=== PATIENT | female | born 1950 | race Caucasian/White ===

== ENCOUNTER 2017-04-13 01:58 | Observation (INO) | payer OTHER ==
[2017-04-13] MEDS ORDERED: NS 1,000 ML IV ONE (02:09)
--- NOTE | 2017-04-13 02:09 | EDPHY ---
H & P HPI/ROS: HPI CHIEF COMPLAINT: Face tingling, left arm tingling, left foot tingling HISTORY OF PRESENT ILLNESS: This patient is 66-year-old female, history of atrial fibrillation, obstructive sleep apnea, C diff, and only takes baby aspirin, she presents to the emergency room with what she noted initially was left formal left hand tingling noticed that her face was tingling both sides not 1 side, and noticed her left foot was tingling. She became concerned as it persisted started 11:00 p.m. so it has been present for 4+ hours. She denies any chest pain or shortness of breath or focal weakness. She decided come the emergency room to be evaluated for this tingling. Past Medical History: Atrial fibrillation, obstructive sleep apnea, C diff, oxygen at night Past Surgical History: No recent surgery Social History: Denies daily use drugs alcohol tobacco products Family History: Noncontributory ROS REVIEW OF SYSTEMS: A comprehensive 10 point review of systems is otherwise negative aside from elements mentioned in the history of present illness. Exam Constitutional appears well nontoxic, triage nursing summary reviewed, vital signs reviewed, awake/alert. Eyes normal conjunctivae and sclera, EOMI, PERRLA. HENT normal inspection, atraumatic, moist mucus membranes, no epistaxis, neck supple/ no meningismus, no raccoon eyes. Respiratory clear to auscultation bilaterally, normal breath sounds, no respiratory distress, no wheezing. Cardiovascular rate normal, regular rhythm, no murmur, no edema, distal pulses normal. Gastrointestinal soft, non-tender, no rebound, no guarding, normal bowel sounds, no distension, no pulsatile mass. Genitourinary no CVA tenderness. Musculoskeletal no midline vertebral tenderness, full range of motion, no calf swelling, no tenderness of extremities, no meningismus, good pulses, neurovascularly intact. Skin pink, warm, & dry, no rash, skin atraumatic. Neurologic no focal neuro deficit on exam, awake, alert and oriented x 3, AAOx3 , moves all 4 extremities equally, motor intact, sensory intact, CN II-XII intact, normal cerebellar, normal vision, normal speech. Psychiatric normal mood/affect. Heme/Lymph/Immune no lymphadenopathy. Differential Diagnosis: Includes but is not limited to in a particular order, TIA, CVA, electrolyte disturbance, intracranial bleed Medical Decision Making: Plan for this patient I will touch base with [facility] and how they would like me to proceed with this neurological evaluation. She does have a underlying history of AFib and only on aspirin, she complaining of left forearm and hand tingling, full face tingling and left foot tingling. She distally tells me that she has a little bit of increased swelling to her lower extremities bilaterally. No chest pain or shortness of breath. Patient had a CT scan of her head, EKG, troponin, blood work and re- evaluation. Re-evaluation: 0223AM: Spoke with Dr. Yash Soto, [facility]. He is not feel the patient needs an emergent MRI at this time. Obviously she is not a tPA candidate. Time of onset of symptoms 11:00 p.m. her over 4+ hours. Her symptoms very mild of tingling. No weakness. Recommend CT scan blood work and touch base with Gabriel. CT scan of the head without IV contrast The results of the study are negative for bleed or infarct. The study was read by Dr. Corbin. I viewed the images myself on the PACS system. 0256AM: Spoke with [facility]. They are fine with us keeping the patient here in the hospital. 0256AM: ED x-ray chest one view negative for acute cardiopulmonary disease. Image interpreted by myself. 0304AM: Re-evaluation at this time. Patient complaining tingling left forearm left hand. No new neurological symptoms. No focal weakness. No chest pain or shortness of breath. Her blood work including troponin, EKG, CT head without contrast is unremarkable. She will be admitted to Dr. Gipson for further evaluation of this left-sided tingling and face tingling. Again she is not a tPA candidate due to outside the window as well as symptoms extremely mild. She is resting comfortably she is agreeable for admission. Source: Patient - Medical/Surgical History Hx Asthma: No Hx Chronic Respiratory Disease: No Hx Diabetes: No Hx Cardiac Disease: Yes Hx Renal Disease: No Hx Cirrhosis: No Hx Alcoholism: No Hx HIV/AIDS: No Hx Splenectomy or Spleen Trauma: No Other PMH: afib, pituitary cyst removal, HAYDEE - Social History Smoking Status: Former smoker Constitutional: Initial Vital Signs Temperature (C) 37.0 C 04/13/17 02:00 Heart Rate 60 04/13/17 02:00 Respiratory Rate 18 04/13/17 02:00 Blood Pressure 163/91 H 04/13/17 02:00 O2 Sat (%) 95 04/13/17 02:00 O2 Delivery Mode Room Air O2 (L/minute) 2 Allergies/Adverse Reactions: metoprolol Allergy (Verified 04/13/17 09:54) slows heart rate metronidazole [From Flagyl] Allergy (Verified 04/13/17 09:54) blurred vision Home Medications: Medication Instructions Recorded Aspirin [Aspirin 81mg (*)] 81 mg PO HS 05/02/15 Ascorbic Acid [Vitamin C 500 mg 500 mg PO DAILY 07/08/16 (*)] Herbals/Supplements -Info Only 1 ea PO DAILY 07/08/16 Multivitamins [Multivitamin (*)] 1 each PO DAILY 07/08/16 Sodium Chloride [Saline [place]] 1 - 2 spray EACHNARE HS PRN 07/08/16 Dugger-3 Fatty Acids [Fish Oil 1000 1,000 mg PO BID 04/13/17 mg (*)] Atorvastatin Calcium [Lipitor 10 10 mg PO DAILY #30 tab 04/14/17 mg (*)] Diltiazem [Cardizem Immediate 30 mg PO QID #60 tab 04/14/17 Release] Warfarin Sodium 5 mg PO DAILY #30 tablet 04/14/17 Medical Decision Making - Data Points Laboratory Results: Laboratory Results 04/13/17 02:10 04/13/17 02:10 Medications Given: Discontinued Medications Ascorbic Acid (Vitamin C) 500 mg PO DAILY [facility] Stop: 10/10/17 11:29 Last Admin: 04/14/17 07:57 Dose: 500 mg Aspirin (Aspirin) 81 mg PO HS [facility] Stop: 10/10/17 20:59 Last Admin: 04/13/17 20:52 Dose: 81 mg Aspirin Buffered (Aspirin Ec) 325 mg PO EDNOW ONE Stop: 04/13/17 02:56 Last Admin: 04/13/17 03:06 Dose: 325 mg Atorvastatin Calcium (Lipitor) 10 mg PO DAILY [facility] Stop: 10/10/17 12:59 Last Admin: 04/14/17 08:09 Dose: Not Given Bacitracin (Bacitracin Ointment) 1 lora TP BID [facility] Stop: 05/13/17 20:59 Last Admin: 07/25/17 07:58 Dose: 1 lora Digoxin (Lanoxin) 62.5 mcg PO HS [facility] Stop: 10/10/17 11:59 Last Admin: 04/13/17 12:00 Dose: 62.5 mcg Diltiazem HCl (Cardizem Immediate Release) 30 mg PO ONCE ONE Stop: 04/14/17 11:16 Last Admin: 04/14/17 11:35 Dose: 30 mg Enoxaparin Sodium (Lovenox) 95 mg SC ONCE ONE Stop: 04/13/17 12:57 Last Admin: 04/13/17 13:12 Dose: 95 mg Sodium Chloride (Ns) 1,000 mls @ 0 mls/hr IV ONCE ONE; Wide Open PRN Reason: Protocol Stop: 04/13/17 02:10 Last Admin: 04/13/17 02:25 Dose: 1,000 mls Diltiazem HCl 125 mg/ Dextrose 125 mls @ 0 mls/hr IV CONT ADOLFO; Per Protocol PRN Reason: Protocol Stop: 10/10/17 12:44 Last Admin: 04/13/17 17:00 Dose: 125 mls Magnesium Sulfate (Epsom Salt) 454 gm TP ONCE ONE Stop: 04/13/17 16:21 Last Admin: 04/13/17 16:30 Dose: 454 gm Multivitamins (Tab-A-Salazar) 1 each PO DAILY [facility] Stop: 10/10/17 11:29 Last Admin: 04/14/17 07:57 Dose: 1 each [id number] Ethyl Esters (Fish Oil) 1,000 mg PO BID [facility] Stop: 10/10/17 20:59 Last Admin: 04/14/17 07:58 Dose: 1,000 mg Sodium Chloride (Rosine) 1 - 2 spray EACHNARE HS PRN PRN Reason: Dry Nose Stop: 10/10/17 11:31 Last Admin: 04/13/17 17:30 Dose: 1 spr Warfarin Sodium (Coumadin) 5 mg PO ONCE@16 ONE Stop: 04/13/17 16:01 Last Admin: 04/13/17 16:30 Dose: 5 mg Departure - Departure Disposition: [facility] Acute Clinical Impression: Paresthesias Atrial fibrillation Qualifiers: Atrial fibrillation type: unspecified Qualified Code(s): I48.91 - Unspecified atrial fibrillation Condition: Fair
--- NOTE | 2017-04-13 02:10 | CPEKG ---
Heart Rate: 52 RR Interval: 1154 P-R Interval: 192 QRSD Interval: 78 QT Interval: 436 QTC Interval: 406 P Sparta: 49 QRS [place]: -1 T Wave [place]: 8 EKG Severity - BORDERLINE ECG - EKG Impression: SINUS RHYTHM EKG Impression: BORDERLINE T ABNORMALITIES, ANTERIOR LEADS Electronically Signed By: Rakan Parra 15-Apr-2017 14:28:52
[2017-04-13 02:22] LABS: % IMMATURE GRANULYOCYTES 0.4 % (0.0-1.1); ABSOLUTE IMMATURE GRANULOCYTES 0.03 10^3/uL (0.00-0.10); ADD DIFF? NO; ADD MORPH? NO; ADD SCAN? NO; ATYPICAL LYMPHOCYTE FLAG 0 (0-99); FRAGMENT RBC FLAG 0 (0-99); HEMATOCRIT 38.9 % (38.0-47.0); HEMOGLOBIN 13.4 g/dL (12.6-16.3); LEFT SHIFT FLG 0 (0-99); LIPEMIA HEMOLYSIS FLAG 90 (0-99); MEAN CELL HEMOGLOBIN 30.5 pg (27.9-34.1); MEAN CELL HEMOGLOBIN CONCENTR. 34.4 g/dL (32.4-36.7); MEAN CELL VOLUME 88.4 fL (81.5-99.8); PLATELET CLUMPS FLAG 0 (0-99); PLATELET COUNT 241 10^3/uL (150-400); RED CELL DISTRIBUTION WIDTH 12.3 % (11.5-15.2)
[2017-04-13 02:32] LABS: ALANINE AMINOTRANSFERASE 36 IU/L (9-52); ALBUMIN 4.3 g/dL (3.5-5.0); ALKALINE PHOSPHATASE 64 IU/L (38-126); ANION GAP 12 mEq/L (8-16); ASPARTATE AMINOTRANSFERASE 26 IU/L (14-46); BILIRUBIN,TOTAL 0.5 mg/dL (0.1-1.4); BILIRUBIN-CONJUGATED 0.2 mg/dL (0.0-0.5); BILIRUBIN-UNCONJUGATED 0.3 mg/dL (0.0-1.1); CALCIUM 9.4 mg/dL (8.5-10.4); CARBON DIOXIDE 22 mEq/l (22-31); CHLORIDE 103 mEq/L (97-110); CREATININE 0.7 mg/dL (0.6-1.0); GLOMERULAR FILTRATION RATE > 60; GLUCOSE 96 mg/dL (70-100); INR 1.01 (0.83-1.16); PROTIME(PATIENT) 13.2 SEC (12.0-15.0); SODIUM 137 mEq/L (134-144); TOTAL PROTEIN 7.5 g/dL (6.3-8.2)
[2017-04-13 02:33] LABS: APTT 32.2 SEC (23.0-38.0)
[2017-04-13 02:44] LABS: CREATINE KINASE-MB FRACTION 1.14 ng/mL (0-3.19); TROPONIN I < 0.012 ng/mL (0-0.034)
[2017-04-13] MEDS ORDERED: ASPIRIN EC 325 MG TAB PO ONE (02:55)
[2017-04-13] MEDS ORDERED: ONDANSETRON DISINTEGRATING 4 MG TAB PO PRN (03:23)
[2017-04-13] MEDS ORDERED: ACETAMINOPHEN 325 MG TAB PO PRN (03:23)
[2017-04-13] MEDS ORDERED: ONDANSETRON 4 MG/2 ML VIAL IVP PRN (03:23)
--- NOTE | 2017-04-13 04:33 | PDGENHP ---
History and Physical - Chief Complaint Acute parasthesias - History of Present Illness PCP: Dr. Casey Cards: Dr. Mandie Cheung HPI: 66 yo F p/w acute parasthesias characterized as "tingling" sensation located in LUE, LLE, and right face, w/ onset of symptoms at rest, around 11 p.m. on the evening of presentation. She had no paresis. Only other associated symptom is intermittent chest sensation of palpitation w/ alternating slow heart rate, typical of her symptomatic paroxysmal atrial fibrillation. Duration of the parasthesias was approx 4 hours, and it was alleviated w/o intervention. 2 days prior to presentation, she experienced approx 7 hours of symptomatic AFib RVR, which left her feeling fatigued. She has also noted bilat LE edema. Her exercise tolerance has been particularly poor, but she feels like that may be 2/2 deconditioning, as she has not been engaging in regular exercise. History Information - Allergies/Home Medication List Allergies/Adverse Reactions: No Known Allergies Allergy (Verified 04/13/17 02:13) Home Medications: Aspirin [Aspirin 81mg (*)] 81 mg PO DAILY 05/02/15 [Last Taken 07/08/16] Ascorbic Acid [Vitamin C 500 mg (*)] 500 mg PO DAILY 07/08/16 [Last Taken ] Herbals/Supplements -Info Only 1 ea PO DAILY 07/08/16 [Last Taken 07/08/16] Multivitamins [Multivitamin (*)] 1 each PO DAILY 07/08/16 [Last Taken 07/08/16] Saccharomyces Boulardii [FLORASTOR] 250 mg PO DAILY 07/08/16 [Last Taken ] Sodium Chloride [Saline [place]] 1 - 2 spray EACHNARE HS PRN 07/08/16 [Last Taken 07/07/16] I have personally reviewed and updated: family history, medical history, social history, surgical history - Past Medical History atrial fibrillation (paroxysmal and potentially sick sinus syndrome) Additional medical history: HAYDEE. Nocturnal Hypoxia. Pituitary Adenoma. Cdiff. Diverticulosis. One episode of severe epistaxis - Surgical History Additional surgical history: Pituitary Resection - Family History Additional family history: no premature CAD, mother w/ Afib and valve issues, c/ b by diverticular bleed - Social History Smoking Status: Former smoker Alcohol Use: None Drug Use: None Additional social history: Poor exercise tolerance, iADLs Review of Systems ROS: 10pt was reviewed & negative except for what was stated in HPI & below Cardiac: Reports: palpitations Neurological: Reports: paresthesia Physical Exam Temp Pulse Resp BP Pulse Ox 37.0 C 46 L 17 139/79 H 99 04/13/17 02:00 04/13/17 03:55 04/13/17 03:55 04/13/17 03:55 04/13/17 03:55 O2 (L/minute) 2 Constitutional: no apparent distress, appears nourished, not in pain, other ( aged appearing) Eyes: PERRL, anicteric sclera, EOMI, other (R eyelid fullness, unclear if drooping (present x months)) Ears, Nose, Mouth, Throat: moist mucous membranes, hearing normal, ears appear normal, no oral mucosal ulcers Cardiovascular: irregularly irregular, bradycardia, edema (trace bilat LE), No systolic murmur Respiratory: no respiratory distress, no rales or rhonchi, clear to auscultation Gastrointestinal: normoactive bowel sounds, soft, non-tender abdomen, no palpable masses Genitourinary: no bladder fullness, no renal bruits Skin: warm, normal color, no rashes or abrasions, no fluctuance, no induration, No mottled Neurologic: AAOx3, sensation intact bilaterally, CN II-XII Intact, No weakness ( motor 5/5 bilat UE/LE), No facial droop Psychiatric: interacting appropriately, not encephalopathic, thought process linear, anxious, No agitated Lab Data & Imaging Review 04/13/17 02:10 04/13/17 02:10 WBC 7.93 10^3/uL (3.80-9.50) 04/13/17 02:10 RBC 4.40 10^6/uL (4.18-5.33) 04/13/17 02:10 Hgb 13.4 g/dL (12.6-16.3) 04/13/17 02:10 Hct 38.9 % (38.0-47.0) 04/13/17 02:10 MCV 88.4 fL (81.5-99.8) 04/13/17 02:10 MCH 30.5 pg (27.9-34.1) 04/13/17 02:10 MCHC 34.4 g/dL (32.4-36.7) 04/13/17 02:10 RDW 12.3 % (11.5-15.2) 04/13/17 02:10 Plt Count 241 10^3/uL (150-400) 04/13/17 02:10 MPV 10.0 fL (8.7-11.7) 04/13/17 02:10 Neut % (Auto) 44.5 % (39.3-74.2) 04/13/17 02:10 Lymph % (Auto) 42.7 % (15.0-45.0) 04/13/17 02:10 Clark % (Auto) 9.1 % (4.5-13.0) 04/13/17 02:10 Eos % (Auto) 2.5 % (0.6-7.6) 04/13/17 02:10 Baso % (Auto) 0.8 % (0.3-1.7) 04/13/17 02:10 Nucleat RBC Rel Count 0.0 % (0.0-0.2) 04/13/17 02:10 Absolute Neuts (auto) 3.53 10^3/uL (1.70-6.50) 04/13/17 02:10 Absolute Lymphs (auto) 3.39 10^3/uL (1.00-3.00) H 04/13/17 02:10 Absolute Monos (auto) 0.72 10^3/uL (0.30-0.80) 04/13/17 02:10 Absolute Eos (auto) 0.20 10^3/uL (0.03-0.40) 04/13/17 02:10 Absolute Basos (auto) 0.06 10^3/uL (0.02-0.10) 04/13/17 02:10 Absolute Nucleated RBC 0.00 10^3/uL (0-0.01) 04/13/17 02:10 Immature Gran % 0.4 % (0.0-1.1) 04/13/17 02:10 Immature Gran # 0.03 10^3/uL (0.00-0.10) 04/13/17 02:10 PT 13.2 SEC (12.0-15.0) 04/13/17 02:10 INR 1.01 (0.83-1.16) 04/13/17 02:10 APTT 32.2 SEC (23.0-38.0) 04/13/17 02:10 Sodium 137 mEq/L (134-144) 04/13/17 02:10 Potassium 4.0 mEq/L (3.5-5.2) 04/13/17 02:10 Chloride 103 mEq/L (97-110) 04/13/17 02:10 Carbon Dioxide 22 mEq/l (22-31) 04/13/17 02:10 Anion Gap 12 mEq/L (8-16) 04/13/17 02:10 BUN 12 mg/dL (7-23) 04/13/17 02:10 Creatinine 0.7 mg/dL (0.6-1.0) 04/13/17 02:10 Estimated GFR > 60 04/13/17 02:10 Glucose 96 mg/dL (70-100) 04/13/17 02:10 Calcium 9.4 mg/dL (8.5-10.4) 04/13/17 02:10 Magnesium 2.0 mg/dL (1.6-2.3) 04/13/17 02:10 Total Bilirubin 0.5 mg/dL (0.1-1.4) 04/13/17 02:10 Conjugated Bilirubin 0.2 mg/dL (0.0-0.5) 04/13/17 02:10 Unconjugated Bilirubin 0.3 mg/dL (0.0-1.1) 04/13/17 02:10 AST 26 IU/L (14-46) 04/13/17 02:10 ALT 36 IU/L (9-52) 04/13/17 02:10 Alkaline Phosphatase 64 IU/L (38-126) 04/13/17 02:10 Creatine Kinase 106 IU/L (0-156) 04/13/17 02:10 CK-MB (CK-2) Fraction 1.14 ng/mL (0-3.19) 04/13/17 02:10 Troponin I < 0.012 ng/mL (0-0.034) 04/13/17 02:10 NT-Pro-B Natriuret Pep 260 pg/mL (0-125) H 04/13/17 02:10 Total Protein 7.5 g/dL (6.3-8.2) 04/13/17 02:10 Albumin 4.3 g/dL (3.5-5.0) 04/13/17 02:10 Visualized and Interpreted Chest x-ray results: Yes Chest X-Ray results: no infiltrate Visualized and Interpreted imaging results: Yes Interpretation: tele w/ slow Afib Visualized and Interpreted EKG results: Yes EKG Interpretation: Positive for: other (NSR w/ Q III, TWI III/V3/V4) Assessment & Plan Assessment: 66 yo F p/w acute paresthesias concerning for possible TIA in setting of paroxysmal Afib Plan: 1. Suspected TIA. Acute, new problem, further w/u. Evidenced by L unilateral paresthesia, R facial paresthesia, and high risk w/ pAfib only on ASA - reviewed outside record, DC summary by Dr. Junior Tuttle 07/08/16, reports patient evaluated for rapid Afib and placed on digoxin, ASA per pt choice and low Chads-Vasc - if sx c/w TIA, then she has ABCD2 score of 4, conferring moderate risk of 2 day/7 day/90 day CVA, requires urgent risk w/u and likely anticoagulation - get MRI (w/ and w/o, given hx pituitary adenoma) - get CUS - get Echo (it's been 3 years since outpt echo, needs valve assessment as she is considering pradaxa, also has new LE edema) - get lipid/A1c - get Neuro consult - strongly consider systemic anticoagulation - counseled patient extensively on DOAC & Coumadin comparative effectiveness, as well as agent choice regarding reversal agents, cost, etc. 2. Paroxysmal Atrial Fibrillation. Intermittently in NSR and slow AFib on tele, patient may be developing sick sinus syndrome and should be evaluated by her outpatient director child abuse therapy for burden w/ monitor and consideration of PPM - currently no indication for emergent placement - cont outpt dig dosing, pending dig level and no significant pauses o/n - SSS may be contributing to her fatigue and poor exercise tolerance, as well as edema - initiate w/u w/ Echo - systemic anticoagulation indicated, see above Diet. Cardiac PPx. Mod risk, SCDs until MRI Code. Full Dispo. ADD 04/13 s/p eval, vs. 04/14 if there are any complicating cardioneuro issues. If she requires > 2 midnights for reasonable medical necessary work-up/ treatment, will be upgraded by Natalee Hawley at that time. Of note, patient inquired deeply about her insurance coverage of Observation status medical treatment. Our emergency department staff contacted [facility] and posed this question to their staff. We were informed by [facility] that the patient's Observation care at [facility] would be covered in its entirety up to 72hrs, and, based on this information from [facility], the patient chose to receive further care here at [facility].
[2017-04-13 06:01] LABS: CHOLESTEROL 189 mg/dL (140-220); CHOLESTEROL/HDL RATIO 5.11 RATIO (1.00-4.44); HIGH DENSITY LIPOPROTEIN 37 mg/dL (40-85); LDL/HDL RATIO 3.32 RATIO (1.00-3.22); LOW DENSITY LIPOPROTEIN 123 mg/dL (80-100); NON-HIGH DENSITY LIPOPROTEIN 152 mg/dL (90-129); TRIGLYCERIDE 146 mg/dL (35-135); VERY LOW DENSITY LIPOPROTEINS 29 mg/dL (8-25)
[2017-04-13 06:14] LABS: TROPONIN I < 0.012 ng/mL (0-0.034)
[2017-04-13] MEDS ORDERED: IOPAMIDOL (ISOVUE 370) 100 ML BTL IV ONE (09:07)
--- NOTE | 2017-04-13 10:25 | PDCONSULT ---
Fil[facility] Grower Note: HOSPITAL NEUROLOGY CONSULT REQUESTING: Alexander Gipson MD REASON: TIA HPI: 66 year old right-handed woman with a history of paroxysmal atrial fibrillation (only being treated with ASA 81mg - patient declined anticoagulation in past), HAYDEE on nocturnal oxygen, pituitary cyst resection who presented to our ED early this AM due to tingling. Patient noted she was going in and out of afib over the last 2-3 days, which made her feel quite fatigued. Last night, at around 11pm, she developed abrupt onset tingling in the bilateral face below the eyebrows and also the left arm and left leg. Left arm involved the hand and forearm and the left leg involved the foot and lower leg/tibial region. She states the sensation was like mild pins and needles, like being exposed to cold air for too long. She states the areas were not insensate. Symptoms lasted about 4 hours and resolved spontaneously. She had no weakness, gait trouble, speech/language disturbance, visual disturbance, dizzy/vestibular symptoms. No headache, fevers, neck stiffness, recent illness. She denies any prior history of stroke/TIA. In the ED, a CT ead wo was done which showed no acute changes. SHe got an ASA 325mg and was admitted for further workup. She was no a thrombolytic/intervention candidate due to mild/resolving symptoms and time of presentation - she was evaluated by telestroke service in the ED. ROS: As per the HPI, otherwise a complete 12 point ROS was performed and is negative ALLERGIES AND MEDS: As recorded in the EMR - reviewed and reconciled PFSH: As per the intake H&P by Dr. Gipson from today EXAM: VS reviewed in EMR GEN: WDWN sitting in NAD HEENT: NCAT, sclera anicteric, conjunctiva not injected, MMM, oropharynx clear, no scalp tenderness NECK: supple, nontender, no meningismus CV: RRR s1 s2 wo m/r/c/g. Carotid pulses 2+ wo bruit NEURO: MS: awake, alert, oriented to all spheres. Speech nondysarthric. No language disturbance. Follows commands. Attends to both sides. Recent/remote memory grossly intact. Mood euthymic. Good fund of knowledge. CN: pupils 4mm round and reactive. Fundi with sharp discs. VFF. Primary gaze centered. Full ocular motility. Facial sensation preserved. Face symmetric. Hearing grossly intact to finger rub. Palatoglossal movements intact. Shoulder shrug and head turn strong. MOTOR: normal bulk/tone. No adventitial movements. Full power throughout. SENSORY: intact LT/PP throughout and symmetric. No extinction. COORD: no ataxia FN/HS. Gilberto preserved. REFLEX: plantars down. No clonus. Absent ankle jerks, other DTRS trace. GAIT: deferred to PT safety eval DATA REVIEW: Labs reviewed in EMR LDL 123 A1c pending TTE pending PERSONALLY INTERPRETED RESULTS AND DATA: CT head wo - no acute pathology IMPRESSION AND RECOMMENDATIONS: // SELF LIMITING PARESTHESIAS OF BILATERAL FACE, LEFT ARM AND LEFT LEG // PAROXYSMAL AFIB // HAYDEE Patient with episode of tingling in the bilateral facial regions, left arm and left leg. Given the duration, may have been a stroke involving the brainstem, thalami or multifocal hemispheric regions. Could also represent an epiphenomenon from perfusion deficit from her afib, or perhaps anxiety related to her afib episodes. Will need to investigate for vascular etiology. MRI brain wo. CTA head/neck with attention to posterior circulation. Would strongly advise considering anticoagulation in any event given her elevated CHADSVASc score (age and gender equate to a score of 2 alone), and the possibility this event represents a stroke/TIA. Goal normotension. Goal normoglycemia with A1c < 6.5 Would add statin given her cardiac risk and possibility of stroke/TIA - LDL goal < 100 if TIA, LDL goal < 70 if stroke Cont nocturnal oxygen for HAYDEE Continue cardiac evaluation per primary team PT/OT consults Stroke education provided - focused on activating EMS for any stroke-like symptoms
[2017-04-13 10:39] LABS: HEMOGLOBIN A1C 5.3 % (4.0-6.0)
[2017-04-13] MEDS ORDERED: SODIUM CHLORIDE EACHNARE PRN (11:24)
[2017-04-13] MEDS ORDERED: [UNRECOGNIZED DRUG - OTHER] EACHNARE PRN (11:24)
[2017-04-13] MEDS ORDERED: Herbals/Supplements -Info Only PO SCH (11:30)
[2017-04-13] MEDS ORDERED: DIGOXIN 125 MCG TAB PO SCH ×4 (11:40→21:00)
[2017-04-13] MEDS: MULTIVITAMINS 1 EACH TAB PO SCH (12:02)
[2017-04-13] MEDS: ASCORBIC ACID 500 MG TAB PO SCH (12:03)
--- NOTE | 2017-04-13 12:11 | HOSPPROG ---
Hospitalist Progress Note Assessment/Plan: Li is a 66 yo F p/w acute parasthesias characterized as "tingling" sensation located in LUE, LLE, and right face. Her symptoms have since resolved. 2 days prior to her admission, she had 7 hours of afib/ which caused her fatigue/ today is my first encounter with the patient/ chart reviewed. Discussed her case with Dr Gonzalez. *afib with RVR (paroxysmal) digoxin given now tx to tele and start dilt gtt had not wanted OAC in the past/ cost and concerns is giving it more thought [id number] score is 4/ which makes her high risk (female, age, TIA) will give her one treatment dose of Lovenox now cardiology to see *bradycardia reviewed telemetry concern for tachy/torie arrhythmias's *TIA will initiate statin therapy (she is hesitant to take/start w low dose) AIC is stable blood pressure is elevated/will monitor/ may become hypotensive with the afib ultrasound show no flow limiting stenosis, MRI nothing acute, CT of head and neck/nothing acute *HAYDEE cont O2 *Obesity with a BMI of 38 *Plan: tx to telemetry/ cards to see/ diltz gtt, one dose of LMWH (treatment dose), statin. Plan of care discussed with patient. She will require another midnight stay due to AFIB w RVR. This will make her IP. Subjective: Li can feel the afib/ has been intermittent. Objective: Vital Signs Temp Pulse Resp BP Pulse Ox 37.0 C 132 H 21 H 140/93 H 93 04/13/17 11:23 04/13/17 12:00 04/13/17 11:23 04/13/17 11:38 04/13/17 11:23 04/12/17 04/13/17 04/14/17 05:59 05:59 05:59 Intake Total 1100 Balance 1100 PT 13.2 SEC (12.0-15.0) 04/13/17 02:10 INR 1.01 (0.83-1.16) 04/13/17 02:10 - Physical Exam Constitutional: no apparent distress, obese Eyes: PERRL Ears, Nose, Mouth, Throat: hearing normal Cardiovascular: irregularly irregular, tachycardia, edema (bilateral lower extremity) Respiratory: no respiratory distress Gastrointestinal: normoactive bowel sounds Skin: warm, normal color Musculoskeletal: no muscle tenderness Neurologic: AAOx3, CN II-XII Intact, No facial droop Psychiatric: interacting appropriately, not anxious, not encephalopathic ICD10 Worksheet Patient Problems: Problems Problem Status Onset Atrial fibrillation Acute Paresthesias Acute Atrial fibrillation with rapid ventricular response Acute
--- NOTE | 2017-04-13 12:14 | CPEKG ---
Heart Rate: 122 RR Interval: 492 QRSD Interval: 64 QT Interval: 308 QTC Interval: 439 QRS [place]: 14 T Wave [place]: 257 EKG Severity - ABNORMAL ECG - EKG Impression: ATRIAL FIBRILLATION Electronically Signed By: Shan Ferrera 13-Apr-2017 12:21:34
--- NOTE | 2017-04-13 12:46 | ECHO ---
[id number] + + [address] : : [place] [address] : : [phone] + + Adult Echocardiographic Report + --------+ :Name: JANINE PEREZ JStudy Date: 04/13/2017 09:51 AM : : Hospital Admission Number: [id number] Locat ion: 357: :: 1950 Gender: Female Height: 62 in : :Age: 66 yrs Race: WH Weight: 210 l b : :Reason For Study: Eval LV Fx : : BSA: 2.0 mete rs2 : :History: TIA, Hx of A-Fib : + --------+ MMode/2D Measurements \T\ Calculations IVSd: 0.75 cm LVIDd: 4.5 cm FS: 41.5 % Ao root diam: 2.7 cm LVPWd: 0.81 cm LVIDs: 2.6 cm EDV(Teich): 93.1 ml ACS: 1.8 cm ESV(Teich): 25.6 ml EF(Teich): 72.5 % Normal Measurement Values: + + :LVIDd (3.5-5.7cm) IVSd (0.6-1.1cm) LVPWd (0.6-1.1cm) Aortic Root (2.0-3.7cm)Left Atrium (1.5-4.0cm): :LV Vol(d) (76-115ml) LV Vol(s) (29-48ml) Ejec Fraction (50-65%)PV Florentino (0.6- 1.2m/s) TV Florentino (0.4-1.0m/s) : :MV E Florentino (0.8-1.0m/s)MV A Florentino (0.3-1.0m/s)LVOT Florentino (0.7-1.2m/s) Asc Ao Florentino ( 0.9-1.8m/s) : + + Doppler Measurements \T\ Calculations MV E max florentino: Ao V2 max: LV V1 max: PA V2 max: 72.1 cm/sec 133.0 cm/sec 80.0 cm/sec 93.7 cm/sec MV A max florentino: Ao max P.1 mmHgLV V1 max PG: PA max P.7 cm/sec 2.6 mmHg 3.5 mmHg MV E/A: 0.74 TR max florentino: 279.6 cm/sec TR max P.3 mmHg RAP systole: 5.0 mmHg RVSP(TR): 36.3 mmHg Left Ventricle The left ventricle is normal in size. There is normal left ventricular wall thickness. The left ventricular ejection fraction is normal. There is Doppler evidence for diastolic dysfunction. Ejection Fraction = 73%. The left ventricular wall motion is normal. Right Ventricle The right ventricle is normal in size and function. Atria The left atrial size is normal. Right atrial size is normal. Mitral Valve The mitral valve is normal. There is no evidence of mitral valve prolapse. There is no mitral valve stenosis. There is trace mitral regurgitation. Tricuspid Valve Normal tricuspid valve. There is trace to mild tricuspid regurgitation. Right ventricular systolic pressure is normal. Aortic Valve The aortic valve is trileaflet. The aortic valve opens well. There is no aortic stenosis. There is no aortic insufficiency. Pulmonic Valve The pulmonic valve is normal in structure and function. There is no pulmonic valvular regurgitation. Great Vessels The aortic root is normal size. Pericardium/Pleural There is no pericardial effusion. Multiple episodes of ectopy noted during exam. Conclusion A complete two-dimensional transthoracic echocardiogram was performed (2D, M-mode, Doppler and color flow Doppler). The left ventricular ejection fraction is normal. There is Doppler evidence for diastolic dysfunction. Ejection Fraction = 73%. The left ventricular wall motion is normal. The right ventricle is normal in size and function. The left atrial size is normal. The mitral valve is normal. There is trace mitral regurgitation. There is trace to mild tricuspid regurgitation. Right ventricular systolic pressure is normal. The aortic valve is trileaflet. The aortic valve opens well. The aortic root is normal size. There is no pericardial effusion. Multiple episodes of ectopy noted during exam. Final Reading Physician: Layton Justice signed on 04/13/2017 12:45 PM Ordering Physician: Alexander Gipson Performed By: Shady Kelley, CS
[2017-04-13] MEDS ORDERED: ENOXAPARIN 100 MG/ML SYR SC ONE (12:56)
[2017-04-13] MEDS: SODIUM CL NASAL 45 ML BTL EACHNARE PRN ×2 (14:00→17:30)
[2017-04-13] MEDS: DILTIAZEM 125 MG in D5W 125 ML IV SCH ×3 (14:19→17:00)
[2017-04-13] MEDS ORDERED: WARFARIN SODIUM 5 MG TAB PO ONE (16:00)
[2017-04-13] MEDS ORDERED: EPSOM SALT 454 GM TP ONE (16:20)
[2017-04-13] MEDS: ATORVASTATIN CALCIUM 10 MG TAB PO SCH (16:24)
--- NOTE | 2017-04-13 17:39 | GCON ---
[f rep st] CONSULTATION DATE OF CONSULTATION: 04/13/2017 We are asked by hospitalist to consult on this patient. REASON FOR CONSULTATION: Atrial fibrillation with rapid ventricular response. HISTORY OF PRESENT ILLNESS: The patient is a 66-year-old female with history of episodes of paroxysmal atrial fibrillation. She presented to the emergency room due to paraesthesias, which included tingling sensation in her left upper and lower extremities and right side of her face, which occurred around 11 p.m. on 04/12/2017. At that time, she noted intermittent chest palpitations that were both rapid and would slow down. She reported that that was typical of her episodes of atrial fibrillation. These did subside without any treatment. She had noticed episodes of similar palpitations over a 2-day period prior to her presentation to the emergency room. The episodes of atrial fibrillation were not concerning to her; however, the numbness and tingling in her left side did prompt her to seek medical attention. She did have a full evaluation by Neurology upon her arrival to the emergency room, finding no indication of CVA. She has been on aspirin therapy prior to this visit. She had been offered anticoagulation therapy in the past and had declined. At time of visit, she is feeling fairly well, with notation of palpitations. She denies any shortness of breath, dizziness, lightheadedness, or symptoms of numbness or tingling. PAST MEDICAL HISTORY: Included paroxysmal atrial fibrillation, obstructive sleep apnea, nocturnal hypoxia, C difficile, diverticulosis, and pituitary adenoma. PAST SURGICAL HISTORY: Pituitary resection. SOCIAL HISTORY: Former smoker. She denies use of illicit drugs or alcohol. She does live alone and admits to getting poor exercise. HOME MEDICATIONS: Aspirin 81 mg daily, vitamin C 500 mg daily, herbal supplement one daily, multivitamin one daily. ALLERGIES: No known allergies. REVIEW OF SYSTEMS: Ten-point review of systems was negative except that mentioned in the HPI. PHYSICAL EXAMINATION: VITAL SIGNS: Blood pressure 140/90. Heart rate 120-130 , irregular. Oxygen saturation 93%. GENERAL: Fatigued. Weight gain ENT: No visual changes. No hearing problems. No swallowing difficulty. CARDIOVASCULAR: Heart rate irregularly regular. No murmurs, rubs, gallops. RESPIRATORY: Lung sounds are clear to auscultation. No wheezes, rales, or rhonchi. GI: Abdomen is nontender and soft to palpation. Bowel sounds equal in all 4 quadrants. SKIN: Warm and dry. Trace lower extremity edema. NEURO: She is alert and oriented x3 with no weakness. PSYCHOLOGICAL: Mood is pleasant. REPORTS: EKG on 04/13/17 showed heart rate 122, atrial fibrillation. Echocardiogram done 04/13/2017 showed ejection fraction 73%. No wall motion abnormalities. Trace mitral regurgitation. Trace to mild tricuspid regurgitation. Aortic valve trileaflet. No pericardial effusion noted. IMPRESSION AND PLAN: With her episodes of paroxysmal atrial fibrillation, it would be in her best interest to get started on an anticoagulation agent. She is in agreement to start Coumadin. She understands the need for INR checks. We will continue with diltiazem drip. Should she not convert through the night , we will consider transesophageal echocardiogram with cardioversion in the morning. She will be NPO at midnight for possible transesophageal echocardiogram, cardioversion in the morning. At this time, she is stable. We will continue to follow along. /[id number]/MODL MTDD
[2017-04-13] MEDS ORDERED: BACITRACIN OINTMENT 1 PACKET TP ONE (18:05)
[2017-04-13] MEDS: OMEGA-3 FATTY ACIDS 1,000 MG CAP PO SCH ×2 (20:52→21:03)
[2017-04-13] MEDS: BACITRACIN OINTMENT 1 PACKET TP SCH ×2 (20:55→21:04)
[2017-04-13] MEDS ORDERED: ASPIRIN 81 MG CHEWABLE TAB PO SCH (21:00)
[2017-04-14 04:41] LABS: INR 1.08 (0.83-1.16); PROTIME(PATIENT) 13.9 SEC (12.0-15.0)
[2017-04-14 05:12] LABS: CHOLESTEROL 188 mg/dL (140-220); CHOLESTEROL/HDL RATIO 5.22 RATIO (1.00-4.44); HIGH DENSITY LIPOPROTEIN 36 mg/dL (40-85); LDL/HDL RATIO 3.31 RATIO (1.00-3.22); LOW DENSITY LIPOPROTEIN 119 mg/dL (80-100); NON-HIGH DENSITY LIPOPROTEIN 152 mg/dL (90-129); TRIGLYCERIDE 167 mg/dL (35-135); VERY LOW DENSITY LIPOPROTEINS 33 mg/dL (8-25)
[2017-04-14 07:16] VITALS: BP 115/62; PULSE 47; RESP 16; TEMP 97.8; O2SAT 97
[2017-04-14] MEDS: MULTIVITAMINS 1 EACH TAB PO SCH (07:57)
[2017-04-14] MEDS: ASCORBIC ACID 500 MG TAB PO SCH (07:57)
[2017-04-14] MEDS: ATORVASTATIN CALCIUM 10 MG TAB PO SCH ×2 (07:57→08:09)
[2017-04-14] MEDS: OMEGA-3 FATTY ACIDS 1,000 MG CAP PO SCH (07:58)
[2017-04-14] MEDS: BACITRACIN OINTMENT 1 PACKET TP SCH (07:58)
--- NOTE | 2017-04-14 08:32 | HOSPPROG ---
Hospitalist Progress Note Assessment/Plan: Li is a 66 yo F p/w acute parasthesias characterized as "tingling" sensation located in LUE, LLE, and right face. Her symptoms have since resolved. 2 days prior to her admission, she had 7 hours of afib/ which caused her fatigue. *afib with RVR (paroxysmal)/ converted to sinus last night treated w dilt gtt/now off agreeable to starting coumadin [id number] score is 4/ which makes her high risk (female, age, TIA) appreciate cardiology *bradycardia reviewed telemetry concern for tachy/torie arrhythmias's *TIA will initiate statin therapy (she is hesitant to take/start w low dose) AIC is stable ultrasound show no flow limiting stenosis, MRI nothing acute, CT of head and neck/nothing acute *HLD: statin therapy *HAYDEE cont O2 *Obesity with a BMI of 38 very motivated to lose weight *Plan: dc today after cardiology sees/ will ask if she should be on calcium channel wero vs digoxin or both?/ has some bradycardia Subjective: Li has no complaints/ feeling fine. Objective: Vital Signs Temp Pulse Resp BP Pulse Ox 36.6 C 47 L 16 115/62 97 04/14/17 07:15 04/14/17 07:15 04/14/17 07:15 04/14/17 07:15 04/14/17 07:15 04/13/17 04/14/17 04/15/17 05:59 05:59 05:59 Intake Total 815 Output Total 600 Balance 215 PT 13.9 SEC (12.0-15.0) 04/14/17 03:56 INR 1.08 (0.83-1.16) 04/14/17 03:56 - Physical Exam Constitutional: no apparent distress, obese Eyes: PERRL Ears, Nose, Mouth, Throat: hearing normal Cardiovascular: regular rate and rhythym, edema (ankle), No irregularly irregular, No tachycardia Respiratory: no respiratory distress Gastrointestinal: normoactive bowel sounds Skin: warm, normal color Musculoskeletal: full muscle strength Neurologic: AAOx3 Psychiatric: interacting appropriately ICD10 Worksheet Patient Problems: Problems Problem Status Onset Atrial fibrillation Acute Paresthesias Acute Atrial fibrillation with rapid ventricular response Acute
--- NOTE | 2017-04-14 10:07 | GDS ---
[f rep st] DISCHARGE SUMMARY DISCHARGE DIAGNOSES: 1. Transient ischemic attack. 2. Paroxysmal atrial fibrillation with rapid ventricular rate. 3. Bradycardia. 4. Hyperlipidemia. 5. Obstructive sleep apnea. 6. Obesity with a body mass index of 38. HISTORY OF PRESENT ILLNESS: Briefly, the patient is a 66-year-old female who presented to the emergency room with paresthesia. She noted tingling sensation in her left upper and left lower extremity and right face. Her symptoms resolved. Two days prior to admission, she had 7 hours of AFib, which caused her to feel fatigued. During her stay, she developed rapid atrial fibrillation with RVR. She was transferred to the telemetry unit. She was placed on a diltiazem drip. She converted on her own back into sinus rhythm last evening. In addition, the recommendation is for her to be on oral anticoagulation and statin therapy. She will be given prescriptions for this on discharge. She will review her care herself with her [place] doctor and further discuss. HOSPITAL COURSE BY PROBLEM: 1. Transient ischemic attack: Initiated statin therapy. A1c is stable. Carotid ultrasound shows no flow-limiting stenosis. MRI shows nothing acute. CT of her head and neck shows nothing acute. 2. Atrial fibrillation with RVR: She converted to sinus rhythm. Her Chads2- VASc score is 4, which makes her at high risk. Will discharge her home on diltiazem and oral anticoagulation. She is not clear if she would like to be on the cardizem till she further discusses with her doctor. She may continue digoxin if she decides not to take the diltiazem. Otherwise stop digoxin if taking diltiazem. 3. Bradycardia: Stable. 4. Hyperlipidemia: Statin therapy. 5. Obstructive sleep apnea: Continue oxygen. 6. Obesity with a BMI of 38: She is very motivated to lose weight. PENDING LABORATORY DATA AND TESTS: None. CONDITION AT DISCHARGE: Stable. Blood pressure is 115/67, heart rate is 47, respiratory rate is 16, O2 sats on 2 L are 97%, and temperature is 36.6 Celsius. MEDICATIONS AT DISCHARGE: Please see the EMR. There have been multiple changes to her medications in that Coumadin, Lipitor and Cardizem and have been added. Recommended that she stop the digoxin. DISCHARGE INSTRUCTIONS: 1. Get her INR checked this . 2. Her doctor to regulate her Coumadin dose. 3. If she develops fever, chills, chest pain, shortness of breath or any stroke -like symptoms, to return to the ER. Greater than 30 minutes discharging and coordinating care. /[id number]/MODL MTDD
[2017-04-14] MEDS ORDERED: DILTIAZEM 30 MG TAB PO ONE (11:15)
--- NOTE | 2017-04-14 19:40 | PDCARPN ---
Cardiology Progress Note Assessment/Plan: Assessment: Atrial Fibrillation w/ RVR---Dilt drip started yesterday. During the night she converted to RSR. Feels well today. We discussed stopping Digoxin and switching to Diltiazem CD PO 120 mg QD. She is with [facility] and prefers to discuss with her Manager [employer] there. She will go home on Digoxin, Dilt 30 mg TID, and continue on Coumadin for anticoagulation. She will contact [facility] tomorrow for Coumadin clinic monitoring. Plan:Discharge today. Follow up with [facility] this week or next. She will call for appointment. 04/14/17 19:36 Objective: Intake/Output (24 Hrs) 04/13/17 04/14/17 04/15/17 05:59 05:59 05:59 Intake Total 815 Output Total 600 Balance 215 Intake: Oral (ml) 800 IV Infused (ml) 15 Diltiazem 125 mg In D5w 15 125 ml @ Per Protocol IV CONT ADOLFO Rx#:[id number] Output: Urine (ml) 600 Toilet 600 Other: Intake Quantity Yes Sufficient Number of Voids Toilet 2 Result Diagrams: 04/13/17 02:10 04/13/17 02:10 - Physical Exam Constitutional: WDWN, no apparent distress Cardiovascular: regular rate and rhythm, no murmurs, no rubs, no gallops Peripheral Pulses: 2+: carotid (R), carotid (L), dorsalis-pedis (R), dorsalis- pedis (L) Respiratory: clear to auscultate bilat, no crackles, no wheezes Gastrointestinal: no tenderness Skin: no rashes, warm, no edema Neurologic: AAOx3 Psychiatric: cooperative, interactive ICD10 Worksheet Patient Problems: Problems Problem Status Onset Atrial fibrillation Acute Atrial fibrillation with rapid ventricular response Acute Paresthesias Acute
[2017-04-14] MEDS ORDERED: DIGOXIN 125 MCG TAB PO SCH (21:00)
== END 2017-04-14 11:47 | disposition home or self-care (01) ==
LOC: F3N 03:55 → OBSVTOIN 13:10 → INTOOBSV 13:10 → F2W 13:33
PROVIDERS: ADMIT Internal Medicine; ATTEND Internal Medicine
DX: G45.9 Transient cerebral ischemic attack, unspecified (principal); I48.0 Paroxysmal atrial fibrillation; R00.1 Bradycardia, unspecified; Z79.82 Long term (current) use of aspirin; E78.5 Hyperlipidemia, unspecified; G47.33 Obstructive sleep apnea (adult) (pediatric); E66.9 Obesity, unspecified; Z68.38 Body mass index [BMI] 38.0-38.9, adult; R94.31 Abnormal electrocardiogram [ECG] [EKG]; Z87.891 Personal history of nicotine dependence; Z86.39 Personal history of other endocrine, nutritional and metabolic disease; E04.1 Nontoxic single thyroid nodule
CPT/HCPCS: 70450; 70496; 70498; 70551; 71010; 93005; 93306; 93880; 97165; 97530; G0378; G8987; G8988; G8989; J1650; Q9967